=== PATIENT | female | born 1935 | race Two or more races ===

== ENCOUNTER 2019-02-11 10:12 | Emergency (ER) | payer OTHER ==
[~2019-02-11] VITALS: Ht 167.6 cm; Wt 70.3 kg
[~2019-02-11 10:12] MED LIST: AMLODIPINE BESY10 MG; CARVEDILOL25 MG; ECOTRIN81 MG; ISOSORBIDE DINI30 MG; LEVOTHYROXINE25 MCG; LOSARTAN-HCTZ1 EAC1; METFORMIN HCL500 MG; SIMVASTATIN40 MG
[2019-02-11] MEDS ORDERED: VASOTEC10 MG (10:46)
[2019-02-11] MEDS ORDERED: LEVOTHYROXINE25 MCG (10:46)
[2019-02-11] MEDS ORDERED: TOPROL XL50 M1 (10:47)
[2019-02-11] MEDS ORDERED: PLAVIX75 MG (10:47)
[2019-02-11] MEDS ORDERED: RAZADYNE ER16 MG (10:49)
[2019-02-11] MEDS ORDERED: LIPITOR20 MG (10:49)
== END 2019-02-11 13:35 ==
LOC: ER 10:12
DX: M54.2 Cervicalgia (principal); M75.22 Bicipital tendinitis, left shoulder

== ENCOUNTER 2019-11-11 13:10 | Emergency (ER) | payer OTHER ==
[~2019-11-11] VITALS: Ht 167.6 cm; Wt 70.3 kg
[~2019-11-11 13:10] MED LIST changes: +LIPITOR20 MG; +PLAVIX75 MG; +RAZADYNE ER16 MG; +TOPROL XL50 M1; +VASOTEC10 MG
== END 2019-11-11 14:59 | disposition home or self-care (01) ==
LOC: ER 13:10
DX: S80.02XS Contusion of left knee, sequela (principal); S70.02XS Contusion of left hip, sequela; R10.2 Pelvic and perineal pain; W18.09XS Striking against other object with subsequent fall, sequela

== ENCOUNTER → 2019-12-02 | Outpatient (CLI) | payer OTHER | END | disposition home or self-care (01) | LOC: MRI 10:15 | DX: M25.552 Pain in left hip (principal) | CPT/HCPCS: 73721 ==

== ENCOUNTER 2019-12-09 09:29 | Inpatient (IN) | payer OTHER ==
[~2019-12-09] VITALS: Ht 175.3 cm; Wt 70.8 kg
[2019-12-09] MEDS ORDERED: VASOTEC20 M1 PO (09:38)
[2019-12-09] MEDS ORDERED: RAZADYNE ER16 MG PO (09:39)
[2019-12-11] MEDS ORDERED: ULTRACET PO (07:26)
== END 2019-12-11 11:53 | DRG 482 ==
LOC: ER 09:29 → SURG 15:22
PROVIDERS: ADMIT Orthopaedic Surgery
PROC: 0QS706Z Reposition Left Upper Femur with Intramedullary Internal Fixation Device, Open Approach (ICD-10-PCS; principal; 2019-12-10 14:15)
DX: S72.042A Displaced fracture of base of neck of left femur, initial encounter for closed fracture (principal); W17.89XA Other fall from one level to another, initial encounter; M81.0 Age-related osteoporosis without current pathological fracture; I10 Essential (primary) hypertension; E03.8 Other specified hypothyroidism; E11.9 Type 2 diabetes mellitus without complications; Z79.4 Long term (current) use of insulin; Z95.1 Presence of aortocoronary bypass graft

== ENCOUNTER → 2020-06-10 | Emergency (ER) | payer OTHER ==
[~2020-06-10] VITALS: Ht 162.6 cm; Wt 72.6 kg
[~2020-06-10] MED LIST changes: +RAZADYNE ER16 MG PO; +ULTRACET PO; +VASOTEC20 M1 PO; +XOPENEX0.63 MG/3 IH
== END | disposition home or self-care (01) ==
LOC: ER 23:29
DX: R06.02 Shortness of breath (principal); Z03.818 Encounter for observation for suspected exposure to other biological agents ruled out

== ENCOUNTER 2021-07-01 13:12 | Emergency (ER) | payer OTHER ==
[~2021-07-01] VITALS: Ht 170.2 cm; Wt 68.9 kg
[2021-07-01] MEDS ORDERED: CELEBREX100 MG PO (15:29)
[2021-07-01] MEDS ORDERED: ULTRAM50 MG PO (15:29)
[2021-07-01] MEDS ORDERED: CYCLOBENZAPRINE10 MG PO (15:29)
== END 2021-07-01 15:45 | disposition home or self-care (01) ==
LOC: ER 13:12
DX: S73.192A Other sprain of left hip, initial encounter (principal); S33.5XXA Sprain of ligaments of lumbar spine, initial encounter; W18.39XA Other fall on same level, initial encounter; Y93.89 Activity, other specified; Y92.018 Other place in single-family (private) house as the place of occurrence of the external cause; Y99.8 Other external cause status

== ENCOUNTER 2021-11-05 10:23 | Emergency (ER) | payer OTHER ==
[~2021-11-05] VITALS: Ht 167.6 cm; Wt 77.1 kg
[~2021-11-05 10:23] MED LIST changes: +CELEBREX100 MG PO; +CYCLOBENZAPRINE10 MG PO; +ULTRAM50 MG PO
[2021-11-05] MEDS ORDERED: AMLODIPINE-OLM1 EAC2 PO (10:35)
[2021-11-05] MEDS ORDERED: RAZADYNE ER16 M1 PO (10:35)
== END 2021-11-05 15:24 | disposition home or self-care (01) ==
LOC: ER 10:23
DX: K52.9 Noninfective gastroenteritis and colitis, unspecified (principal); I10 Essential (primary) hypertension; E11.9 Type 2 diabetes mellitus without complications; Z79.84 Long term (current) use of oral hypoglycemic drugs